=== PATIENT | female | born 1990 | race Hispanic/Latino ===

== ENCOUNTER 2016-09-10 23:23 | Emergency (ER) ==
[2016-09-11] MEDS ORDERED: CIPRODEX OTIC SUSPENSION RIGHT EAR ONE (00:15)
--- NOTE | 2016-09-11 00:20 | PROVIDER DOCUMENTATION ---
HPI-General Adult - General Chief Complaint: Earache Stated Complaint: RT EARACHE Time Seen by Provider: 09/11/16 00:02 Allergies/Adverse Reactions: Patient Allergies Allergy/AdvReac Type Severity Reaction Status Date / Time No Known Allergies Allergy Verified 07/23/16 00:42 Home Medications: Home Medication List Medication Instructions Recorded Confirmed Last Taken Type Guaifen/Dextromethorphan/PE 1 each PO TID #30 tablet 07/23/16 Unknown Rx [Deconex Dmx Tablet] Metronidazole [Flagyl] 500 mg PO BID #14 tablet 07/23/16 Unknown Rx Sulfamethoxazole/Trimethoprim 1 each PO BID #10 tablet 07/23/16 Unknown Rx [Bactrim Ds Tablet] Ciproflox/Dexameth Otic Susp 4 drop RIGHT EAR BID #1 bottle 09/11/16 Unknown Rx [Ciprodex Otic Suspension] - History of Present Illness -Gen Adult Nature of Presenting Problems: This pt presents to ED with c/o right ear pain that started two days ago. She states she has a history of frequent ear infections. She has been unable to sleep and has been dizzy for 2 days. Denies fever, chills, body aches. Location of Pain/Injury: reports: other (right ear) Pain Radiation: reports: no radiation. denies: back, buttocks, chest, epigastric, groin, legs (lower) Quality of Pain: reports: fullness, pressure, sharp, throbbing. denies: aching , burning, cramping Severity: reports: severe Onset/Duration: reports: 2 days ago Timing: reports: still present, getting worse Context/Activities at Onset: denies: light activity, moderate activity, vigorous activity, recent trauma history, possible bad food, cold exposure, eating Modifying Factors: improves with: nothing. worse with: breathing, coughing, immobilization, lying down, massage, movement Associated Symptoms: reports: dizziness, EENT symptoms. denies: back/neck pain , chest pain, constipation, cough, diaphoresis, fever/chills, headaches, malaise , muscle aches, sensory/motor loss, pain with inspiration - Diabetes Related Context Context: denies: low blood sugar, high blood sugar, change in mental status, unresponsive, prior DKA hospitalization - Sickle Cell Pain Related Context Sickle Cell Pain Location: reports: none. denies: head, face, mouth, neck, chest, upper extremity, hand(s), abdomen, back, pelvis, genitalia, lower extremity, feet, upper body, lower body, generalized, other Review of Systems - Adult - REVIEW OF SYSTEMS - ADULT Constitutional: reports: see HPI. denies: chills, fever, fatique, night sweats Eyes: reports: see HPI. denies: discharge, dry eyes, blurred vision, double vision Ears, Nose, Mouth & Throat: reports: see HPI, ear pain (right ear). denies: nose pain, loose teeth, throat pain Cardiovascular: reports: see HPI. denies: chest pain, edema, irregular heart rate, orthopnea, poor circulation Respiratory: reports: see HPI. denies: chronic cough, cough, dyspnea on exertion, shortness of breath, wheezing Gastrointestinal: reports: see HPI. denies: abdominal pain, hematemesis, difficulty swallowing, frequent heartburn Genitourinary: reports: see HPI. denies: dysuria, discharge, frequent UTI's Musculoskeletal: reports: see HPI. denies: bone pain, back pain, joint pain, joint swelling, muscle weakness Integumentary: reports: see HPI. denies: hives, hair loss, mole changes, nail changes, skin sores/ulcer, skin thickening Neurological: reports: see HPI, dizziness/vertigo. denies: ataxia, headache/ migraines, numbness, paresthesia Psychiatric: reports: see HPI. denies: anxiety, anti-depressant use, alcohol/ drug dependence, emotional problems, insomnia, panic attacks Endocrine: reports: see HPI. denies: change in skin pigment, excessive sweating , cold intolerance, heat intolerance, increased hunger Hematologic/Lymphatic: reports: see HPI. denies: blood clots, easy bruising, lymphedema, prolonged bleeding Allergic/Immunologic: reports: see HPI. denies: allergic reactions, allergic rhinitis, food allergy, frequent infections, hay fever Past History - Adult - PAST MEDICAL HISTORY-ADULT Review of Records: reports: Old Records Reviewed, Nursing Assessment Review, Medications Reviewed, Social history reviewed & non-contributory. Major Childhood Illnesses: reports: denies history Cardiovascular: reports: denies history Respiratory: reports: denies history Gastrointestinal: reports: denies history Obstetrical/Gynecological: reports: denies history Genitourinary: reports: denies history Musculoskeletal: reports: denies history Neurological: reports: denies history Psychiatric: reports: denies history Endocrine/Immune: reports: denies history Other Conditions: reports: denies history - PRIOR SURGERIES/PROCEDURES Surgical/Procedure History: reports: reviewed, not pertinent - PRIOR HOSPITALIZATIONS Prior Hospitalizations: reports: none - IMMUNIZATION STATUS Childhood Immunizations: UTD Flu Vaccine: UTD - FAMILY HISTORY Family History: reviewed, not pertinent - SOCIAL HISTORY Smoking: denies Substance Use: none/never Alcohol Use Frequency: never Physical Exam-General - PHYSICAL EXAM-ADULT Initial Vital Signs Reviewed: Yes - CONSTITUTIONAL General Appearance: appears well, alert, mild distress. negative: lethargic, slow to respond, obtunded, combative - EYES Eyes: PERRL/EOMI, pink conjunctivae. negative: photophobia, sclera injected, scleral icterus, subconjunctival hemorrhage - HEAD, EARS, NOSE, MOUTH & THROAT HENMT: normocephalic/atraumatic, moist mucous membranes, TM abnormal (right TM erythematous). negative: angioedema, dental decay, hearing deficit - NECK Neck: non-tender, full range of motion. negative: C-spine tenderness, limited range of motion, lymphadenopathy - RESPIRATORY Respiratory: lungs clear, normal breath sounds, no pleuratic chest pain, no respiratory distress, no accessory muscle use. negative: accessory muscle use, crackles, stridor, wheezing, prolonged expiration - CARDIOVASCULAR Cardiovascular: normal peripheral pulses, regular rate, rhythm, no edema, no gallop, no JVD. negative: systolic murmur, gallop/S3, extra beats, irregularly irregular - CHEST (BREASTS) Chest/Breast: deferred - GASTROINTESTINAL (ABDOMEN) Abdominal Exam: normal bowel sounds, non tender. negative: abnormal bowel sounds, distended, mass, hepatomegaly, McBurney's point tenderness, Jose's sign - GENITOURINARY Female Genitalia/Pelvic Exam: deferred Rectal Exam: deferred - LYMPHATIC Lymphatic: no adenopathy. negative: axilla node tender, cervical node tenderness, inguinal node tender, enlargement - MUSCULOSKELETAL Back Exam: normal inspection, no CVA tenderness, no vertebral tenderness. negative: CVA tenderness, decreased range of motion, lordosis, muscle spasm Extremity: normal range of motion, non-tender, normal gait, no pedal edema, no calf tenderness. negative: calf tenderness, deformity, pedal edema, swelling, tenderness Peripheral Pulses: radial (R): 2+, radial (L): 2+ - SKIN Integumentary: normal color, normal turgor, warm/dry - NEUROLOGIC Neurologic: line controller II-XII nml as tested, grossly normal. negative: abnormal gait, focal weakness, motor weakness, sensory deficit, negative romberg's sign - PSYCHIATRIC Psych/Mental Status: normal mood/affect, oriented x 3, tearful Progress - PLAN OF CARE/RESULTS Progress/Plan/Lab Results: Discussed plan of care with patient. Patient agrees with plan and verbalizes understanding. Vital Signs Temp Pulse Resp BP Pulse Ox 09/10/16 23:39 98.0 F 83 16 143/78 100 No Known Allergies Allergy (Verified 07/23/16 00:42) Guaifen/Dextromethorphan/PE [Deconex Dmx Tablet] 1 each PO TID #30 tablet Metronidazole [Flagyl] 500 mg PO BID #14 tablet 07/23/16 Sulfamethoxazole/Trimethoprim [Bactrim Ds Tablet] 1 each PO BID #10 tablet 07/23 Orders Category Date Time Status Ciproflox/Dexameth Otic Susp [Ciprodex Otic Suspension] Med 09/11/16 00:15 Discontinued 2 ml RIGHT EAR NOW ONE Departure - Departure Time of Disposition Order: 00:25 DIAGNOSIS: Otitis externa Qualifiers: Otitis externa type: diffuse Laterality: right Chronicity: acute Qualified Code (s): H60.311 - Diffuse otitis externa, right ear Disposition: HOME Certified Medical Emergency: Emergent Condition: Stable Additional Instructions: Follow up with primary care physician Take medications as directed alternate tylenol and motrin every 4 hours as directed by packaging for fever Return to ED for any concerns or worsening of symptoms ED Follow Up Instructions: You have been treated by a care provider in the Emergency Department. These instructions are being provided to you so you can have an understanding of how to care for yourself upon discharge. Upon discharge from the Emergency Department, you are responsible for making arrangements for follow-up care by a physician of your choice. Take all prescribed medications as directed. Return to the Emergency Department immediately for any new or worsening symptoms. You may call the Physician Referral phone number at [phone] to obtain a list of Physicians who are taking new patients. Prescriptions: Ciproflox/Dexameth Otic Susp [Ciprodex Otic Suspension] 4 drop RIGHT EAR BID #1 bottle Attestation - Physician/ ALEXEY Attestation Patient care was provided by Advanced Practice Provider:: Yes Advanced Practice Provider:: Mathew Ernst Advanced Practice Provider documentation review:: The Mid-level provider documentation, treatment plan and medical decision making was reviewed by the physician who agrees with all treatment and medical decision making by the MLP.
[2016-09-11] MEDS ORDERED: XYLOCAINE 2% VISCOUS ONE (01:02)
[2016-09-11 01:21] VITALS: BP 122/74
== END 2016-09-11 01:21 | disposition home or self-care (01) ==
LOC: ED 23:23
DX: H60.311 Diffuse otitis externa, right ear (principal); H92.01 Otalgia, right ear; R42 Dizziness and giddiness